=== PATIENT | female | born 1960 | race Caucasian/White ===

== ENCOUNTER → 2016-07-18 | Outpatient (CLI) | payer BC ==
[~2016-07-18] MED LIST: FISH OIL500 MG; LEXAPRO20 MG PO; MULTI VITAMINS1 TAB PO; NORCO 325 MG-51 TAB PO; PRILOTC
== END ==
LOC: MC.RAD 11:09
DX: Z12.31 Encounter for screening mammogram for malignant neoplasm of breast (principal); Z80.3 Family history of malignant neoplasm of breast

== ENCOUNTER → 2016-08-12 | Outpatient (CLI) | payer BC | LOC: BHSO 12:47 | DX: F41.1 Generalized anxiety disorder (principal) ==

== ENCOUNTER → 2016-08-26 | Outpatient (CLI) | payer BC | LOC: BHSO 13:01 | DX: F41.0 Panic disorder [episodic paroxysmal anxiety] (principal) | CPT/HCPCS: 90791-AI ==

== ENCOUNTER → 2016-09-07 | Outpatient (CLI) | payer BC | LOC: BHSO 12:56 | DX: F34.1 Dysthymic disorder (principal) ==

== ENCOUNTER → 2016-09-20 | Outpatient (CLI) | payer BC | LOC: BHSO 13:50 | DX: F34.1 Dysthymic disorder (principal) ==

== ENCOUNTER → 2016-09-30 | Outpatient (CLI) | payer BC | LOC: BHSO 09:18 | DX: F33.42 Major depressive disorder, recurrent, in full remission (principal) ==

== ENCOUNTER → 2016-10-05 | Outpatient (CLI) | payer BC | LOC: BHSO 12:58 | DX: F34.1 Dysthymic disorder (principal) ==

== ENCOUNTER → 2016-10-19 | Outpatient (CLI) | payer BC | LOC: BHSO 10:55 | DX: F34.1 Dysthymic disorder (principal) ==

== ENCOUNTER → 2016-11-16 | Outpatient (CLI) | payer BC | LOC: BHSO 11:00 | DX: F34.1 Dysthymic disorder (principal) ==

== ENCOUNTER → 2016-11-30 | Outpatient (CLI) | payer BC | LOC: BHSO 11:00 | DX: F34.1 Dysthymic disorder (principal) ==

== ENCOUNTER → 2016-12-05 | Outpatient (CLI) | payer BC | LOC: BHSO 10:01 | DX: F41.0 Panic disorder [episodic paroxysmal anxiety] (principal) ==

== ENCOUNTER → 2016-12-15 | Outpatient (CLI) | payer BC | LOC: BHSO 11:06 | DX: F34.1 Dysthymic disorder (principal) ==

== ENCOUNTER → 2016-12-29 | Outpatient (CLI) | payer BC | LOC: BHSO 10:58 | DX: F34.1 Dysthymic disorder (principal) ==

== ENCOUNTER → 2017-01-12 | Outpatient (CLI) | payer BC | LOC: BHSO 16:01 | DX: F34.1 Dysthymic disorder (principal) ==

== ENCOUNTER → 2017-01-26 | Outpatient (CLI) | payer BC | LOC: BHSO 11:00 | DX: F34.1 Dysthymic disorder (principal) ==

== ENCOUNTER → 2017-03-07 | Outpatient (CLI) | payer BC | LOC: BHSO 09:02 | DX: F41.1 Generalized anxiety disorder (principal) ==

== ENCOUNTER → 2017-03-09 | Outpatient (CLI) | payer BC | LOC: BHSO 16:01 | DX: F33.1 Major depressive disorder, recurrent, moderate (principal) ==

== ENCOUNTER → 2017-05-08 | Outpatient (CLI) | payer BC | LOC: BHSO 13:01 | DX: F34.1 Dysthymic disorder (principal) ==

== ENCOUNTER → 2017-07-18 | Outpatient (CLI) | payer BC | LOC: BHSO 15:01 | DX: F34.1 Dysthymic disorder (principal) ==

== ENCOUNTER → 2017-08-16 | Outpatient (CLI) | payer BC | LOC: BHSO 11:43 | DX: F33.41 Major depressive disorder, recurrent, in partial remission (principal) | CPT/HCPCS: G0463 ==

== ENCOUNTER → 2017-10-03 | Outpatient (CLI) | payer BC | LOC: BHSO 11:37 | DX: F41.0 Panic disorder [episodic paroxysmal anxiety] (principal) ==

== ENCOUNTER → 2018-01-15 | Outpatient (CLI) | payer BC | LOC: BHSO 11:34 | DX: F41.1 Generalized anxiety disorder (principal) | CPT/HCPCS: G0463 ==

== ENCOUNTER → 2018-04-16 | Outpatient (CLI) | payer BC | LOC: BHSO 11:09 | DX: F41.0 Panic disorder [episodic paroxysmal anxiety] (principal) | CPT/HCPCS: G0463 ==

== ENCOUNTER → 2018-04-25 | Outpatient (CLI) | payer BC | LOC: MC.RAD 07:54 | DX: Z12.31 Encounter for screening mammogram for malignant neoplasm of breast (principal); N64.89 Other specified disorders of breast ==

== ENCOUNTER → 2018-05-01 | Outpatient (CLI) | payer BC | LOC: MC.RAD 13:00 | DX: N64.89 Other specified disorders of breast (principal) | CPT/HCPCS: G0279 ==

== ENCOUNTER → 2018-10-08 | Outpatient (CLI) | payer SELFPAY | LOC: BHSO 13:17 | DX: F33.42 Major depressive disorder, recurrent, in full remission (principal) | CPT/HCPCS: G0463 ==

== ENCOUNTER → 2019-04-17 | Outpatient (CLI) | payer BC | LOC: BHSO 13:02 | DX: F33.42 Major depressive disorder, recurrent, in full remission (principal) | CPT/HCPCS: G0463 ==

== ENCOUNTER → 2019-05-23 | Outpatient (CLI) | payer BC | LOC: MC.RAD 07:30 | DX: Z12.31 Encounter for screening mammogram for malignant neoplasm of breast (principal) ==

== ENCOUNTER → 2019-06-19 | Outpatient (CLI) | payer BC | LOC: COL.RAD 10:57 | DX: R10.31 Right lower quadrant pain (principal); Z90.710 Acquired absence of both cervix and uterus ==

== ENCOUNTER → 2019-10-16 | Outpatient (CLI) | payer BC | LOC: BHSO 12:59 | DX: F33.42 Major depressive disorder, recurrent, in full remission (principal) | CPT/HCPCS: G0463 ==

== ENCOUNTER → 2020-06-16 | Outpatient (CLI) | payer BC ==
[~2020-06-16] MED LIST changes: +DUO-KAPS1 CAP PO; -FISH OIL500 MG; -MULTI VITAMINS1 TAB PO; +OMEGA-3 1000 MG1 CAP PO; +PRISTIQ 50 MG T50 MG PO; +TOPROL XL 50MG50 MG PO; +WELLBUTRIN XL300 M1 PO
== END ==
LOC: MC.RAD
DX: Z12.31 Encounter for screening mammogram for malignant neoplasm of breast (principal)

== ENCOUNTER 2020-11-11 18:55 | Observation (INO) | payer BC ==
[~2020-11-11] VITALS: Ht 167.6 cm; Wt 102.3 kg
[~2020-11-11 18:55] MED LIST changes: -PRISTIQ 50 MG T50 MG PO; -TOPROL XL 50MG50 MG PO; -WELLBUTRIN XL300 M1 PO
[2020-11-11] MEDS ORDERED: PRISTIQ 50 MG T50 MG PO (19:52)
[2020-11-11] MEDS ORDERED: WELLBUTRIN XL300 M1 PO (19:53)
[2020-11-11 22:55] LABS: BASO # 0.1 (0.0-0.2); BASO % 0.7 % (0.0-2.0); EOS # 0.1 (0.0-0.7); EOS % 1.7 % (0-4.0); GRAN # 4.2 (1.4-6.5); GRAN % 54.2 % (42.2-75.2); HEMATOCRIT 41.3 % (37.0-47.0); LYMPH # 2.7 (1.2-3.4); LYMPH % 35.8 % (20.0-51.0); MEAN CELL VOLUME 91 fl (80.0-100.0); MEAN CORPUSCULAR HEMOGLOBIN 31 pg (27.0-31.0); MEAN CORPUSCULAR HGB CONC 34 g/dl (33.0-37.0); MEAN PLATELET VOLUME 9.2 fl (7.4-10.4); MONO # 0.6 (0.1-0.6); MONO % 7.2 % (1.7-9.3); PLATELET COUNT 260 K/mm3 (130-400); RED BLOOD COUNT 4.52 M/mm3 (4.10-5.30); REDCELL DISTRIBUTION WIDTH-CV 12.3 % (11.5-14.5)
[2020-11-11 23:12] LABS: ALBUMIN 4.4 gm/dL (3.5-5.0); C-REACTIVE PROTEIN 0.9 mg/dL (0.0-0.9); CALCIUM 9.7 mg/dL (8.4-10.2); CREATININE, serum 0.9 (0.52-1.25); POTASSIUM 3.8 mmol/L (3.4-5.0); TOTAL PROTEIN 7.8 gm/dL (6.4-8.2)
[2020-11-11 23:31] LABS: TROPONIN-I 0.138 ng/mL (0.000-0.035)
[2020-11-12 00:33] LABS: COLLECTION METHOD CLEAN CATCH
[2020-11-12 00:39] LABS: MUCOUS Present /lpf; PH 6 (5-8); SQUAMOUS EPITHELIAL None Seen /hpf; URINE APPEARANCE Clear; URINE BACTERIA None Seen /hpf; URINE BILIRUBIN Negative (NEGATIVE); URINE BLOOD Negative (NEGATIVE); URINE COLOR Yellow; URINE GLUCOSE Negative (NEGATIVE); URINE KETONE Negative (NEGATIVE); URINE LEUKOCYTE ESTERASE Negative (NEGATIVE); URINE NITRATE Negative (NEGATIVE); URINE PROTEIN(semi-quant) Negative (NEGATIVE); URINE RBC 0-2 /hpf; URINE UROBILINOGEN Negative (NEGATIVE)
[2020-11-12 02:47] VITALS: BP 117/54; PULSE 76; TEMP 98.7
--- NOTE | 2020-11-12 03:23 | NUR ---
NOTIFIED ARYAN LAM OF UPWARD TREND OF TROPONIN FOR 3HR POST INITIAL LAB.
[2020-11-12 03:43] VITALS: BP 109/72; PULSE 71; TEMP 98.1
--- NOTE | 2020-11-12 03:49 | NUR ---
PT BLOOD PRESSURE SIGNIFICANT DECREASE SINCE FIRST RECORDED. VERIFIED WITH PT BASELINE BP, PT STATED, "111/80." BP RETURNING TO BASELINE, WILL CONTINUE TO MONITOR.
[2020-11-12 05:35] LABS: TRICYCLIC ANTIDEPRESS URINE NEGATIVE
[2020-11-12 06:28] LABS: BASO # 0.1 (0.0-0.2); BASO % 0.7 % (0.0-2.0); EOS # 0.2 (0.0-0.7); EOS % 2.3 % (0-4.0); GRAN # 3.3 (1.4-6.5); HEMATOCRIT 38.3 % (37.0-47.0); HEMOGLOBIN 12.8 g/dl (12.5-16.0); LYMPH # 2.9 (1.2-3.4); LYMPH % 41.4 % (20.0-51.0); MEAN CELL VOLUME 92 fl (80.0-100.0); MEAN CORPUSCULAR HEMOGLOBIN 31 pg (27.0-31.0); MEAN CORPUSCULAR HGB CONC 33 g/dl (33.0-37.0); MEAN PLATELET VOLUME 9.4 fl (7.4-10.4); MONO # 0.7 (0.1-0.6); MONO % 9.3 % (1.7-9.3); PLATELET COUNT 221 K/mm3 (130-400); RED BLOOD COUNT 4.15 M/mm3 (4.10-5.30); REDCELL DISTRIBUTION WIDTH-CV 12.3 % (11.5-14.5)
[2020-11-12 06:40] LABS: CALCIUM 8.8 mg/dL (8.4-10.2); CREATININE, serum 0.88 (0.52-1.25); PHOSPHOROUS 4.3 mg/dL (2.5-4.5); POTASSIUM 3.9 mmol/L (3.4-5.0)
--- NOTE | 2020-11-12 06:40 | NUR ---
PT'S TROPONIN TRENDED UP FOR 3HR LAB. PT DENIES CHEST PAIN OR SOA. PT ALERT AND ORIENTED DURING SHIFT. PT ABLE TO AMBULATE INDEPENDENTLY IN ROOM. FREE FROM INJURY THIS SHIFT. NPO STATUS MAINTAINED FOR TEST THIS AM.
[2020-11-12 07:15] LABS: TROPONIN-I 6 HR POST INITIAL 0.212 ng/mL (0.000-0.034)
[2020-11-12 07:30] LABS: TSH w REFLEX 3.53 uIU/mL (0.465-4.680)
[2020-11-12 08:00] VITALS: BP 127/102; PULSE 79; TEMP 97.9
--- NOTE | 2020-11-12 09:24 | NUR ---
SW met with patient for intake assessment. Patient reports that she lives at home alone in [place]. Patient reports she uses no DME with and is independent on ADL's. Pt has a brother, (Zaid P#:[phone]) who lives in [place] and an ex- (Antonio) who lives in [place]. Patient's PCP is Dr. Bell who she receives her medications from. Patient pharmacy is [facility], and does not need help affording medications. Patient does not currently have a DPOA-HC, however she does wish to establish one. ANNA gave patient DPOA-HC form. Patient was unable to complete form at this moment as she left her phone at work. Educated patient that she can fill this form out on her own, but she will need to have it notarized. Patient plans to discharge home. No other needs at this time. * Discharge plan: Home when ready*
[2020-11-12 11:57] VITALS: BP 143/64; PULSE 81; TEMP 98.6
--- NOTE | 2020-11-12 12:08 | NUR ---
Initial visit; Patient thanked [employer] for looking in on her and offering God's blessings.
[2020-11-12] MEDS ORDERED: TOPROL XL 50MG50 MG PO (13:43)
--- NOTE | 2020-11-12 15:30 | NUR ---
0700 PT BEING RECEIVED RESTING IN BED. NO S/S OF DISTRESS NOTICED. PT DENIED HAVING CHEST PAIN. PT NPO AT THIS TIME. COMFORT MEASURES IN PLACE. CALL-LIGHT IN REACH. BED IN LOW POSITION. 0820 PT SCAN DONE. 1000 HOSPITALIST AT THE BED SIDE. EVENT PLANNING MANAGER CONSULTED. 1135 EVENT PLANNING MANAGER AT THE BEDSIDE. PT UPDATED OF THE PLAN OF CARE AND AGREED. PT MAYBE DC'D LATER TODAY. PT OK TO EAT, DIET ORDER PLACED BY PROVIDER. 1200 PT OFFERED LUNCH BUT REFUSED AND REQUESTED A SNACK. SNACK GIVEN. 1500 PT AWARE THAT SHE IS DISCHARGED. PT DENIES HAVING PALPITATIONS OR CHEST PAIN. 1530 DISCHARGE INSTRUCTIONS REVIEWED WITH PT. ALL QUESTIONS ANSWERED. IV ACCESS REMOVED. TELE MONITOR REMOVED AND RETURNED TO ICU.
== END 2020-11-12 15:45 | disposition home or self-care (01) ==
LOC: COL.ER 18:55 → MEDICAL 11-12 00:16
PROVIDERS: Nurse Practitioner; Nurse Practitioner Family; ADMIT Internal Medicine
DX: I21.4 Non-ST elevation (NSTEMI) myocardial infarction (principal); I47.1 Supraventricular tachycardia; I38 Endocarditis, valve unspecified; K21.9 Gastro-esophageal reflux disease without esophagitis; E87.6 Hypokalemia; R74.01 Elevation of levels of liver transaminase levels; R73.9 Hyperglycemia, unspecified; E66.9 Obesity, unspecified; F32.9 Major depressive disorder, single episode, unspecified; Z90.710 Acquired absence of both cervix and uterus; Z79.899 Other long term (current) drug therapy; Z68.36 Body mass index [BMI] 36.0-36.9, adult; Z87.891 Personal history of nicotine dependence; Z80.3 Family history of malignant neoplasm of breast; Z83.3 Family history of diabetes mellitus
CPT/HCPCS: G0378; J1650; J7030